=== PATIENT | male | born 1995 | race Caucasian/White ===

== ENCOUNTER 2017-07-17 19:35 | Emergency (ER) | payer SELFPAY ==
--- NOTE | 2017-07-17 20:46 | RAD ---
Indication: Pain post fall yesterday. History of disc herniation. Comparison: No relevant prior exams available on the [facility] [place] PACS for comparison. Technique: AP, lateral, and oblique views lumbar sacral spine. Report: Straightening relative to normal lumbar lordosis without spondylolisthesis at any level. No cortical disruption or trabecular impaction to indicate a vertebral body fracture. Oblique views without evidence for spondylolysis. Preserved disc spaces. Unremarkable soft tissue contours. IMPRESSION: Aside from straightening relative to normal lordosis the examination is normal.
[2017-07-17] MEDS ORDERED: Dexamethasone TAB* 4 MG PO ONE (21:12)
[2017-07-17] MEDS ORDERED: Ketorolac INJ* 60 MG/2 ML VIAL IM ONE (21:12)
[2017-07-17] MEDS ORDERED: Cyclobenzaprine TAB* 10 MG PO ONE (21:12)
--- NOTE | 2017-07-17 21:14 | ED ---
Back Pain - HPI Summary HPI Summary: 21-year-old male presents with lower back pain for 2 days. He states he has history of herniated disc that was seen on MRI in May. He states his primary told him he should not be lifting anything by he went to the gym and did weights for lower back. He states that he is having right-sided sciatica. Denies any loss of bowel or bladder or saddle anesthesia. He denies any fever. He has taken anything for his pain. He states he has altered the way he walks due to the pain. He is still able to ambulate. He denies any weakness. He has never had this pain before. He has a follow up with [place] tomorrow. - History of Current Complaint Chief Complaint: EDBackInjuryPain Stated Complaint: BACK PAIN Time Seen by Provider: 07/17/17 19:58 Pain Intensity: 7 - Allergies/Home Medications Allergies/Adverse Reactions: Allergies Allergy/AdvReac Type Severity Reaction Status Date / Time No Known Allergies Allergy Verified 07/17/17 19:52 PMH/Surg Hx/FS Hx/Imm Hx Endocrine/Hematology History: Denies: Hx Anticoagulant Therapy Respiratory History: Denies: Hx Asthma - Immunization History Immunizations Up to Date: Yes Infectious Disease History: No Infectious Disease History: Denies: Traveled Outside the [place] in Last 30 Days - Family History Known Family History: Negative: Cardiac Disease - Social History Alcohol Use: Occasionally Substance Use Type: Reports: None Smoking Status (MU): Never Smoked Tobacco Review of Systems Negative: Fever Negative: Chest Pain Negative: Shortness Of Breath Positive: Myalgia - back pain All Other Systems Reviewed And Are Negative: Yes Physical Exam Triage Information Reviewed: Yes Vital Signs On Initial Exam: Initial Vitals Temp Pulse Resp BP Pulse Ox 98.5 F 74 18 139/72 98 07/17/17 19:49 07/17/17 19:49 07/17/17 19:49 07/17/17 19:49 07/17/17 19:49 Vital Signs Reviewed: Yes Appearance: Positive: Well-Appearing Skin: Positive: Warm, Dry Head/Face: Positive: Normal Head/Face Inspection Eyes: Positive: Normal, Conjunctiva Clear Respiratory/Lung Sounds: Positive: Clear to Auscultation, Breath Sounds Present Cardiovascular: Positive: Normal, RRR Musculoskeletal: Positive: Other - tenderess over right side of back, good pulses, sensation grossly intact, pos SLR right Neurological: Positive: Sensory/Motor Intact - legs, Reflexes Intact - patella, Other - ambulated to xray Psychiatric: Positive: Normal Diagnostics - Vital Signs Vital Signs Temp Pulse Resp BP Pulse Ox 07/17/17 19:49 98.5 F 74 18 139/72 98 - Laboratory Lab Statement: Any lab studies that have been ordered have been reviewed, and results considered in the medical decision making process. - Radiology back Xray Interpretation: No Acute Changes Radiology Interpretation Completed By: Radiologist Back Pain Course/Dx - Course Course Of Treatment: 21-year-old male presents with lower back pain for 2 days. He states he has history of herniated disc that was seen on MRI in May. He states his primary told him he should not be lifting anything by he went to the gym and did weights for lower back. He states that he is having right- sided sciatica. Denies any loss of bowel or bladder or saddle anesthesia. He denies any fever. He has taken anything for his pain. He states he has altered the way he walks due to the pain. He is still able to ambulate. He denies any weakness. He has never had this pain before. on exam tenderness over right side of back. pos SLR right. good strength in right leg, neurovascular intact. xray normal. will treat with flexeril, ibuprofen and steriod. patient understand and agrees with plan. - Diagnoses Differential Diagnosis/HQI/PQRI: Positive: Herniated Disc, Strain, Sprain Provider Diagnoses: Back pain Discharge - Discharge Plan Condition: Good Disposition: HOME Prescriptions: Cyclobenzaprine TAB* [Flexeril 10 MG TAB*] 10 mg PO TID PRN #15 tab PRN Reason: Pain methylPREDNISolone [Medrol Dosepak 4 MG*] 4 mg PO .SEE JAKI INSTRUCTION #1 packet Patient Education Materials: Back Pain (ED) Referrals: [facility] - Uriel CHICAS [Primary Care Provider] - Additional Instructions: Follow directions on package for Medrol pack Take muscle relaxers three times a day Use ibuprofen or Tylenol for pain every 6 hours ice/heat area, move as much as possible Follow up with primary within 5 days Return to ED if develop any new or worsening symptoms
[2017-07-17 22:05] VITALS: BP 142/68
== END 2017-07-17 22:05 | disposition home or self-care (01) ==
LOC: ED 19:35
DX: M54.5 Low back pain (principal)
CPT/HCPCS: 72110; 96372; 99282; A9270-GY; J1885; J8540